=== PATIENT | female | born 1975 | race Two or more races ===

== ENCOUNTER 2018-12-14 19:48 | Emergency (ER) | payer OTHER ==
[2018-12-14] MEDS ORDERED: DIPH/PERTUSS(ACELL)/TETANUS VAC/PF 0.5 ML SYR (>=10YO) IM ONE (20:34)
--- NOTE | 2018-12-14 20:36 | ER Document Report ---
ED Medical Screen (RME) - General Chief Complaint: Puncture Wound Stated Complaint: LACERATION TO LEFT HAND Time Seen by Provider: 12/14/18 20:33 Primary Care Provider: GRACE IZQUIERDO FNP-C [Primary Care Provider] - Follow up as needed Mode of Arrival: Ambulatory Information source: Patient Notes: 43-year-old female presented to ED for a puncture wound to her left palm. She was trying to pry hamburgers apart with a knife when the knife slipped cutting her hand. She states her last tetanus was about 14 years ago so she will be getting that today. Bleeding is under control at this time. Patient is alert oriented respirations regular and unlabored speaking in full sentences. I have greeted and performed a rapid initial assessment of this patient. A comprehensive ED assessment and evaluation of the patient, analysis of test results and completion of medical decision making process will be conducted by an additional ED providers. TRAVEL OUTSIDE OF THE [place] IN LAST 30 DAYS: No - Related Data Allergies/Adverse Reactions: No Known Allergies Allergy (Unverified 03/11/11 00:56) Past Medical History - Past Medical History Cardiac Medical History: Reports: Hx Hypercholesterolemia Past Surgical History: Reports: Hx Tubal Ligation - Immunizations Hx Diphtheria, Pertussis, Tetanus Vaccination: - unk Physical Exam - Vital signs Vitals: Temp Pulse Resp BP Pulse Ox 98.0 F 58 L 18 130/84 H 98 12/14/18 19:52 12/14/18 19:52 12/14/18 19:52 12/14/18 19:52 12/14/18 19:52 Course - Vital Signs Vital signs: Temp Pulse Resp BP Pulse Ox 98.0 F 58 L 18 130/84 H 98 12/14/18 19:52 12/14/18 19:52 12/14/18 19:52 12/14/18 19:52 12/14/18 19:52 Doctor's Discharge - Discharge Referrals: GRACE IZQUIERDO FNP-C [Primary Care Provider] - Follow up as needed
--- NOTE | 2018-12-14 22:23 | ER Document Report ---
ED General - General Chief Complaint: Puncture Wound Stated Complaint: LACERATION TO LEFT HAND Time Seen by Provider: 12/14/18 20:33 Primary Care Provider: GRACE IZQUIERDO FNP-C [Primary Care Provider] - Follow up as needed Mode of Arrival: Ambulatory TRAVEL OUTSIDE OF THE [place] IN LAST 30 DAYS: No - HPI Notes: 43-year-old female presents with left hand laceration. [id number] female states just prior to come to the ED she was trying to pry apart to frozen hamburger patties with a steak knife when it slipped and punctured her left hyperthenar eminence. Tetanus is out of date. Sudden onset sharp pain, nonradiating. Throbbing. No other modifying factors, no other associated symptoms, no other provocative or palliative factors. No numbness or tingling. Basic range of motion intact according to patient. - Related Data Allergies/Adverse Reactions: No Known Allergies Allergy (Unverified 03/11/11 00:56) Past Medical History - General Information source: Patient - Social History Smoking Status: Unknown if Ever Smoked Family History: Reviewed & Not Pertinent Patient has suicidal ideation: No Patient has homicidal ideation: No - Past Medical History Cardiac Medical History: Reports: Hx Hypercholesterolemia Past Surgical History: Reports: Hx Tubal Ligation - Immunizations Hx Diphtheria, Pertussis, Tetanus Vaccination: - unk Review of Systems - Review of Systems Notes: Review of systems as in history of present illness, otherwise no significant headache, chest pain, abdominal pain. Physical Exam - Vital signs Vitals: Temp Pulse Resp BP Pulse Ox 98.0 F 58 L 18 130/84 H 98 12/14/18 19:52 12/14/18 19:52 12/14/18 19:52 12/14/18 19:52 12/14/18 19:52 - Notes Notes: General: Well devloped, no acute distress. HEENT: Normocephalic, atraumatic. Pupils equal round reactive to light. Mucosa moist. No JVD. Chest: No trauma, normal excursion. Respiratory: Good air exchange, normal excursion. Cardiac: Regular rhythm Abdomen: Soft, benign. Nondistended. Back: No asymmetry or gross abnormality. Motor: Grossly normal power and tone. Neurologic: Alert, nonfocal. Vascular: Well perfused Skin: No petechiae or purpura Extremities: Approximately 1 cm or less area of non-gaping laceration in the left proximal hyperthenar eminence. Bleeding controlled. Distal neurovascular function intact. The fourth and fifth digits are isolated and flexion is intact at all hand joints, dynamic range of motion shows evidence of tendon injury Course - Re-evaluation Re-evalutation: 12/14/18 22:26 Well appearing female isolated injury. Patient was evaluated by the [facility] provider prior to my evaluation. Studies / interventions have been ordered by this provider and may still be pending. Do not believe this mandates closure, I offered closure versus secondary intention healing and she is elected for the latter. Wound be cleansed and dressed, instructions given with regard to wound care and signs symptoms of infection. - Vital Signs Vital signs: Temp Pulse Resp BP Pulse Ox 98.0 F 58 L 18 130/84 H 98 12/14/18 19:52 12/14/18 19:52 12/14/18 19:52 12/14/18 19:52 12/14/18 19:52 Discharge - Discharge Clinical Impression: Laceration Disposition: HOME, SELF-CARE Instructions: Antibiotic Ointment Protection ([facility]), Laceration Care ([facility]), Tetanus Immunization Given ([facility]) Referrals: GRACE IZQUIERDO FNP-C [Primary Care Provider] - Follow up as needed
[2018-12-14 22:44] VITALS: BP 128/75
== END 2018-12-14 22:44 | disposition home or self-care (01) ==
LOC: ER 19:48
DX: S61.412A Laceration without foreign body of left hand, initial encounter (principal); W26.0XXA Contact with knife, initial encounter; Y92.009 Unspecified place in unspecified non-institutional (private) residence as the place of occurrence of the external cause; Z23 Encounter for immunization; E78.00 Pure hypercholesterolemia, unspecified; Z98.51 Tubal ligation status
CPT/HCPCS: 90471; 90715; 99282

== ENCOUNTER 2020-02-14 19:33 | Emergency (ER) | payer OTHER ==
--- NOTE | 2020-02-14 20:00 | ER Document Report ---
ED Medical Screen (RME) - General Chief Complaint: Flu Symptoms Stated Complaint: HEADACHE/FEVER/CONGESTION/COUGH Time Seen by Provider: 02/14/20 19:55 Primary Care Provider: GRACE IZQUIERDO FNP-C [Primary Care Provider] - Follow up as needed Mode of Arrival: Ambulatory Information source: Patient Notes: Patient is a 44-year-old female comes emergency room with onset of fever cough congestion shortness of breath and temperature with chills with a headache. Patient states it all started today. Patient works at [employer]. She does state that she was tested for the coronavirus a month ago when she had come in contact with her pharmacy operations manager who was positive but she checked negative at that time. Patient denies any past medical history currently on no medications. She denies any history of smoking. And last menstrual period started today. Patient also states that it hurts to take a deep breath. She has no known sick contacts although she does work with the public at [employer]. Physical examination: Patient is a well-nourished well-developed 44-year-old female though in no apparent distress appears uncomfortable. Cardiac: She displays a tachycardic rate at 105 bpm. Lungs: Bilateral breath sounds breath sounds increased patient has some faint expiratory wheeze noted bilaterally. There is no rhonchi auscultated at this time. HEENT: Examination head and upper airway show some mild nasal mucosa erythema and edema with minimal rhinorrhea. Bilateral nasal congestion is noted posterior pharynx with some moderate erythema with no exudates. I have greeted and performed a rapid initial assessment of this patient. A comprehensive ED assessment and evaluation of the patient, analysis of test results and completion of the medical decision making process will be conducted by additional ED providers. Dictation of this chart was performed using voice recognition software; therefore, there may be some unintended grammatical errors. TRAVEL OUTSIDE OF THE [place] IN LAST 30 DAYS: No - Related Data Allergies/Adverse Reactions: No Known Allergies Allergy (Unverified 03/11/11 00:56) Past Medical History - Past Medical History Cardiac Medical History: Reports: Hx Hypercholesterolemia Past Surgical History: Reports: Hx Tubal Ligation - Immunizations Hx Diphtheria, Pertussis, Tetanus Vaccination: - unk Physical Exam - Vital signs Vitals: Temp Pulse Resp BP Pulse Ox 99.7 F 105 H 15 154/94 H 98 02/14/20 19:42 02/14/20 19:42 02/14/20 19:42 02/14/20 19:42 02/14/20 19:42 Course - Vital Signs Vital signs: Temp Pulse Resp BP Pulse Ox 99.7 F 105 H 15 154/94 H 98 02/14/20 19:42 02/14/20 19:42 02/14/20 19:42 02/14/20 19:42 02/14/20 19:42 Doctor's Discharge - Discharge Referrals: GRACE IZQUIERDO, MUSIC ENGRAVER-C [Primary Care Provider] - Follow up as needed
--- NOTE | 2020-02-14 21:06 | RADIOLOGY REPORT (SQ) ---
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 Comparison: Chest radiograph performed 03/11/2011. Findings: The cardiomediastinal silhouette is enlarged. No pneumothorax is seen. There are airspace opacities seen at the right lung base. There is elevation of the right hemidiaphragm. No discrete pleural effusion is apparent. Impression: There are airspace opacities at the right lung base which may reflect atelectasis.
[2020-02-14 21:47] LABS: ABSOLUTE BASOPHILS # (AUTO) 0.1 10^3/uL (0.0-0.2); ABSOLUTE LYMPHOCYTES (AUTO) 0.6 10^3/uL (0.5-4.7); ABSOLUTE NEUT (AUTO) 4.6 10^3/uL (1.7-8.2); BASOPHILS % (AUTO) 0.9 % (0-2); EOSINOPHILS % (AUTO) 0.8 % (0-6); HEMATOCRIT 41.1 % (36.0-47.0); HEMOGLOBIN 14.2 g/dL (12.0-15.5); LYMPHOCYTES % (AUTO) 10.2 % (13-45); MEAN CORPUSCULAR HEMOGLOBIN 30.1 pg (27.0-33.4); MEAN CORPUSCULAR HGB CONC 34.6 g/dL (32.0-36.0); MEAN CORPUSCULAR VOLUME 87 fl (80-97); MONOCYTES % (AUTO) 15.4 % (3-13); PLATELET COUNT 301 10^3/uL (150-450); RED BLOOD COUNT 4.72 10^6/uL (3.72-5.28); RED CELL DISTRIBUTION WIDTH 13.6 % (11.5-14.0); SEGMENTED NEUTROPHILS % (AUTO) 72.7 % (42-78); TOTAL CELLS COUNTED % (AUTO) 100 %; WHITE BLOOD COUNT 6.3 10^3/uL (4.0-10.5)
[2020-02-14 22:13] LABS: ALBUMIN 4.6 g/dL (3.5-5.0); ALKALINE PHOSPHATASE 64 U/L (38-126); ANION GAP 8 (5-19); ASPARTATE AMINO TRANSFERASE 29 U/L (14-36); BILIRUBIN,DIRECT 0.3 mg/dL (0.0-0.4); BILIRUBIN,TOTAL 0.5 mg/dL (0.2-1.3); BLOOD UREA NITROGEN 15 mg/dL (7-20); CARBON DIOXIDE 27 mmol/L (22-30); CHLORIDE 101 mmol/L (98-107); GLUCOSE 102 mg/dL (75-110); POTASSIUM 4.4 mmol/L (3.6-5.0); TOTAL PROTEIN 8.5 g/dL (6.3-8.2)
[2020-02-14 22:40] LABS: A TYPE INFLUENZA AG NEGATIVE (NEGATIVE); B INFLUENZA AG NEGATIVE (NEGATIVE)
[2020-02-15] MEDS ORDERED: AZITHROMYCIN 250 MG TABLET PO ONE (00:13)
--- NOTE | 2020-02-15 00:15 | ER Document Report ---
ED Flu Like - General Chief Complaint: Flu Symptoms Stated Complaint: HEADACHE/FEVER/CONGESTION/COUGH Time Seen by Provider: 02/14/20 19:55 Primary Care Provider: GRACE IZQUIERDO FNP-C [Primary Care Provider] - Follow up in 1 week Mode of Arrival: Ambulatory Notes: Patient is a 44-year-old female who presents emergency department with a headache, cough, congestion, and a fever. Patient states that her fever was 101. States that she started to have her symptoms today. Patient works at [employer]. She does not know if she has been any contact with anybody tested positive for COVID-19. She does not take any medications. Not currently on control. Denies any long car rides or leg pain. Patient does not smoke. TRAVEL OUTSIDE OF THE [place] IN LAST 30 DAYS: No - Related Data Allergies/Adverse Reactions: No Known Allergies Allergy (Unverified 03/11/11 00:56) Past Medical History - General Information source: Patient - Social History Smoking Status: Never Smoker Family History: Reviewed & Not Pertinent - Past Medical History Cardiac Medical History: Reports: Hx Hypercholesterolemia Past Surgical History: Reports: Hx Tubal Ligation - Immunizations Hx Diphtheria, Pertussis, Tetanus Vaccination: - unk Review of Systems - Review of Systems Notes: REVIEW OF SYSTEMS: CONSTITUTIONAL : Denies recent illness. Denies recent unintentional weight loss. See HPI. EENT: Denies eye, ear, throat, or mouth pain, discharge, or symptoms. Denies nasal or sinus congestion. CARDIOVASCULAR: Denies chest pain. RESPIRATORY: See HPI. GASTROINTESTINAL: Denies nausea, vomiting, and diarrhea. Denies abdominal pain. Denies constipation. GENITOURINARY: Denies difficulty urinating, burning, blood in urine, urgency or frequency. MUSCULOSKELETAL: Denies neck and back pain. Denies joint pain or swelling. SKIN: Denies rash, itchiness, or lesions HEMATOLOGIC : Denies easy bruising or bleeding. LYMPHATIC: Denies swollen, painful, enlarged glands. NEUROLOGICAL: Denies no numbness or tingling denies weakness. Denies headache. Denies altered mental status. Denies alteration in speech. PSYCHIATRIC: Denies stress, anxiety, alteration in sleep patterns, or depression. All other systems reviewed and negative. Physical Exam - Vital signs Vitals: Temp Pulse Resp BP Pulse Ox 99.7 F 105 H 15 154/94 H 98 02/14/20 19:42 02/14/20 19:42 02/14/20 19:42 02/14/20 19:42 02/14/20 19:42 - Notes Notes: PHYSICAL EXAMINATION: GENERAL: Appears well, healthy, well-nourished, no acute distress. HEAD: Normocephalic, atraumatic. EYES: PERRL, conjunctiva normal, all extraocular movements intact, sclera nonicteric ENT: Moist mucous membranes. NECK: Supple, no noticeable swelling, redness, rash. Normal range of motion. LUNGS: Diminished to right lower lobe. CARDIOVASCULAR: S1-S2, regular rate, regular rhythm. Radial pulses 2+, normal. ABDOMEN: Normoactive bowel sounds. Soft, nontender, no guarding, no rebound tenderness, and no masses palpated. EXTREMITIES: Normal strength and range of motion, no pitting or edema. No cyanosis. NEUROLOGICAL: Moves all extremities upon command. Strength 5/5 in all extremities. PSYCH: Normal mood, normal affect. SKIN: Warm, dry. No rash, lesions, ulcerations noted. Normal skin turgor. Course - Re-evaluation Re-evalutation: 02/15/20 00:09 The patient was evaluated during the global COVID-19 pandemic and that diagnosis was suspected/considered upon their initial presentation. Their evaluation, treatment and testing was consistent with current guidelines for patients who present with complaints or symptoms that may be related to COVID-19.Hematology does not show a leukocytosis, but there is a shift in the neutrophils at 72.7%. Chemistries are unremarkable. LFTs are normal. Flu and strep tests are negative. Chest x-ray shows airspace opacities in the right base. Radiologist thinks that this may be atelectasis. Due to the patient having a fever and history provided, will place patient on azithromycin. I have a low suspicion for pulmonary emboli or any life-threatening etiology at this time. Follow-up precautions were given. Verbal discharge instructions were given to the patient. They verbalized understanding. They are stable for discharge. - Vital Signs Vital signs: Temp Pulse Resp BP Pulse Ox 99.8 F 95 16 113/75 98 02/14/20 23:43 02/14/20 23:43 02/14/20 23:43 02/14/20 23:43 02/14/20 23:43 - Laboratory Results Result Diagrams: 02/14/20 21:32 02/14/20 21:32 Laboratory Results Interpreted: 02/14/20 02/14/20 21:32 21:32 Lymph % (Auto) 10.2 L [place] % (Auto) 15.4 H Sodium 135.9 L Total Protein 8.5 H Critical Laboratory Results Reviewed: No Critical Results - Radiology Results Critical Radiology Results Reviewed: No Critical Results Discharge - Discharge Clinical Impression: Cough, Person under investigation for COVID-19 Fever Qualifiers: Fever type: unspecified Qualified Code(s): R50.9 - Fever, unspecified Condition: Stable Disposition: HOME, SELF-CARE Additional Instructions: You were seen today in the emergency department for a cough and a fever. You are being placed on antibiotics. Take your antibiotics as prescribed. Follow- up with your primary care provider if your Covid test is negative. Your strep and flu tests were negative. Use the incentive spirometer 10 times an hour while awake. As a person under investigation for COVID-19, the [place] Department of Health and Human Services (division on public health) advises you to adhere to the following guidance until your test results are reported to you. If your test result is positive, you will receive additional information from your provider and your local health department at that time. Remain at home until you are cleared by the health provider or public health authorities. Keep a log of visitors to your home, notify any visitors to your home of your isolation status. If you plan to move to a new address or leave the [facility], notify the local health department in your [facility]. Call your Doctor or seek care if you have an urgent medical need. Before seeking medical care, call him to get instructions from the provider before arriving at the medical office, clinic, or hospital. Notify them that you are being tested for the virus (COVID-19) so that arrangements can be made, as necessary, to prevent transmission to others in the healthcare setting. Next, notify the local health department in your county. Prescriptions: Azithromycin [Zithromax 250 mg Tablet] 250 mg PO DAILY #4 tablet Referrals: GRACE IZQUIERDO FNP-C [Primary Care Provider] - Follow up in 1 week
[2020-02-15 01:04] VITALS: BP 124/68
== END 2020-02-15 01:04 | disposition home or self-care (01) ==
LOC: ER 19:33
DX: U07.1 COVID-19 (principal); R51.9 Headache, unspecified; R05 Cough; R50.9 Fever, unspecified
CPT/HCPCS: 99284; 36415; 87070; 87880; 85025; 87635; 80053; 87804; 71045; C9803

== ENCOUNTER 2020-02-23 17:18 | Emergency (ER) | payer OTHER ==
[2020-02-23] MEDS ORDERED: IPRATROPIUM/ALBUTEROL 0.5-2.5 MG/3 ML AMPUL NEB ONE (18:45)
--- NOTE | 2020-02-23 18:45 | ER Document Report ---
ED Medical Screen (RME) - General Chief Complaint: Cough Stated Complaint: COUGH Time Seen by Provider: 02/23/20 18:38 Primary Care Provider: GRACE IZQUIERDO FNP-C [Primary Care Provider] - Follow up as needed TRAVEL OUTSIDE OF THE [place] IN LAST 30 DAYS: No - HPI Notes: 02/23/20 18:44 44-year-old female presents to the emergency room today for a productive cough that is coming progressively worse since she was diagnosed with Covid on 02/14/2020. She reports she was given a Z-Nikolas and has been self quarantining at home since that time. Reports that she is feeling a little short of breath, she does have some posterior chest pain when she does cough, her cough is 3 out of 5 with pain. Patient states she finished the Z-Nikolas without any issues. No history of asthma, she is a former smoker, quit over 10 years ago. Reports she becomes very short of breath with simple activities, has mostly been sitting in her bed at home. Denies any fevers or chills, nausea, vomiting, diarrhea. I have greeted and performed a rapid initial assessment of this patient. A comprehensive ED assessment and evaluation of the patient, analysis of test results and completion of the medical decision making process will be conducted by additional ED providers. PHYSICAL EXAMINATION: GENERAL: Well-appearing, well-nourished and in no acute distress. CV: s1, s2 regular LUNGS: Diminished breath sounds throughout Musculoskeletal: Normal range of motion NEUROLOGICAL: Normal speech, normal gait. SKIN: Warm, Dry, normal turgor, no rashes or lesions noted. The patient was evaluated during a global COVID-19 pandemic and that diagnosis was suspected/considered upon their initial presentation. Their evaluation, treatment and testing was consistent with current guidelines for patients who present with complaints or symptoms and may be related to COVID-19. - Related Data Allergies/Adverse Reactions: No Known Allergies Allergy (Unverified 03/11/11 00:56) Past Medical History - Past Medical History Cardiac Medical History: Reports: Hx Hypercholesterolemia Past Surgical History: Reports: Hx Tubal Ligation - Immunizations Hx Diphtheria, Pertussis, Tetanus Vaccination: - unk Physical Exam - Vital signs Vitals: Temp Pulse Resp BP Pulse Ox 98.3 F 80 16 120/83 97 02/23/20 17:34 02/23/20 17:34 02/23/20 17:34 02/23/20 17:34 02/23/20 17:34 Course - Vital Signs Vital signs: Temp Pulse Resp BP Pulse Ox 98.3 F 80 16 120/83 97 02/23/20 17:34 02/23/20 17:34 02/23/20 17:34 02/23/20 17:34 02/23/20 17:34 Doctor's Discharge - Discharge Referrals: GRACE IZQUIERDO, HAZARDOUS MATERIALS TANKER DRIVER-C [Primary Care Provider] - Follow up as needed
[2020-02-23 19:12] LABS: ABSOLUTE EOSINOPHILS # (AUTO) 0.1 10^3/uL (0.0-0.6); ABSOLUTE LYMPHOCYTES (AUTO) 2.4 10^3/uL (0.5-4.7); ABSOLUTE MONOCYTES (AUTO) 0.6 10^3/uL (0.1-1.4); ABSOLUTE NEUT (AUTO) 2.7 10^3/uL (1.7-8.2); BASOPHILS % (AUTO) 0.4 % (0-2); EOSINOPHILS % (AUTO) 1.1 % (0-6); HEMATOCRIT 39.1 % (36.0-47.0); HEMOGLOBIN 13.6 g/dL (12.0-15.5); LYMPHOCYTES % (AUTO) 41.2 % (13-45); MEAN CORPUSCULAR HEMOGLOBIN 29.8 pg (27.0-33.4); MEAN CORPUSCULAR HGB CONC 34.7 g/dL (32.0-36.0); MEAN CORPUSCULAR VOLUME 86 fl (80-97); MONOCYTES % (AUTO) 10.9 % (3-13); PLATELET COUNT 321 10^3/uL (150-450); RED BLOOD COUNT 4.55 10^6/uL (3.72-5.28); RED CELL DISTRIBUTION WIDTH 13.4 % (11.5-14.0); SEGMENTED NEUTROPHILS % (AUTO) 46.4 % (42-78); TOTAL CELLS COUNTED % (AUTO) 100 %; WHITE BLOOD COUNT 5.9 10^3/uL (4.0-10.5)
[2020-02-23 19:35] LABS: ALBUMIN 4.1 g/dL (3.5-5.0); ALKALINE PHOSPHATASE 82 U/L (38-126); ANION GAP 6 (5-19); ASPARTATE AMINO TRANSFERASE 40 U/L (14-36); BILIRUBIN,DIRECT 0.1 mg/dL (0.0-0.4); BILIRUBIN,TOTAL 0.4 mg/dL (0.2-1.3); BLOOD UREA NITROGEN 10 mg/dL (7-20); CALCIUM 9.4 mg/dL (8.4-10.2); CARBON DIOXIDE 29 mmol/L (22-30); CHLORIDE 102 mmol/L (98-107); GLUCOSE 94 mg/dL (75-110); POTASSIUM 4.4 mmol/L (3.6-5.0); TOTAL PROTEIN 7.8 g/dL (6.3-8.2)
--- NOTE | 2020-02-23 21:15 | RADIOLOGY REPORT (SQ) ---
EXAM DESCRIPTION: XR CHEST 1 VIEW COMPLETED DATE/TME: 02/23/2020 20:20 CLINICAL HISTORY: 44 years, Female, cough, covid + COMPARISON: None. NUMBER OF VIEWS: TECHNIQUE: LIMITATIONS: None. FINDINGS: No evidence of pulmonary infiltrate or pleural effusion. The heart and mediastinum are unremarkable. Pulmonary vascularity appears normal. IMPRESSION: No acute finding. copyright 2010 [employer]- All Rights Reserved
--- NOTE | 2020-02-23 23:37 | ER Document Report ---
ED Respiratory Problem - General Chief Complaint: Cough Stated Complaint: COUGH Time Seen by Provider: 02/23/20 18:38 Primary Care Provider: GRACE IZQUIERDO FNP-C [Primary Care Provider] - Follow up in 3-5 days TRAVEL OUTSIDE OF THE [place] IN LAST 30 DAYS: No - HPI Notes: Patient is a 44-year-old female with no significant past medical history who presents with shortness of breath and chest pain. Patient was diagnosed with Covid on February 13. She was discharged with a spirometer and a Z-Nikolas. Patient states that she is having chest tightness with deep breathing. She is still having a cough that is nonproductive. Patient states that she also has pain to her right lateral back with coughing. He denies any leg swelling. No loss of taste or smell. No nausea, vomiting, or diarrhea. Patient states her shortness of breath is worse with walking. - Related Data Allergies/Adverse Reactions: No Known Allergies Allergy (Unverified 03/11/11 00:56) Home Medications: denies Past Medical History - General Information source: Patient - Social History Smoking Status: Former Smoker Chew tobacco use (# tins/day): No Frequency of alcohol use: None Drug Abuse: None Family History: Reviewed & Not Pertinent Patient has homicidal ideation: No - Past Medical History Cardiac Medical History: Reports: Hx Hypercholesterolemia Past Surgical History: Reports: Hx Tubal Ligation - Immunizations Hx Diphtheria, Pertussis, Tetanus Vaccination: - unk Review of Systems - Review of Systems Notes: CONSTITUTIONAL: No fever, fatigue or weight loss. SKIN: No rash. HENT: No congestion, ear pain, or sore throat. EYES: No recent vision problems or eye pain. CARDIOVASCULAR: No chest pain or edema. RESPIRATORY: Positive for cough, chest tightness, shortness of breath GASTROINTESTINAL: No abdominal pain, nausea, vomiting, bloody stools or diarrhea. GENITOURINARY: No dysuria. MUSCULOSKELETAL: No joint pain or swelling. NEUROLOGIC: No seizures. No headache, focal weakness or sensory changes. HEMATOLOGIC: No unusual bruising or bleeding. PSYCHIATRIC: No depression or anxiety. Physical Exam - Vital signs Vitals: Temp Pulse Resp BP Pulse Ox 98.3 F 80 16 120/83 97 02/23/20 17:34 02/23/20 17:34 02/23/20 17:34 02/23/20 17:34 02/23/20 17:34 - General General appearance: Appears well In distress: None Notes: VITAL SIGNS: Within normal limits. GENERAL: No acute distress, non-toxic appearance. HEAD: Normal with no signs of head trauma. EYES: Conjunctiva normal, no discharge. EARS: Hearing grossly intact. NOSE: Normal. NECK: Normal range of motion, no tenderness, supple, no lymphadenopathy, No adenopathy, no JVD. CHEST: Clear breath sounds bilaterally. No wheezes, rales, or rhonchi. Reproducible right back discomfort to palpation. CARDIAC: Regular rate and rhythm. S1 and S2, without murmurs, gallops, or rubs. VASCULAR: No Edema. ABDOMEN: Normal and soft with no tenderness, no masses or pulsatile masses. MUSCULOSKELETAL: Good range of motion of all major joints. NEUROLOGICAL: Alert and oriented x 3. No focal sensory or strength deficits. Speech normal. Follows commands appropriately. PSYCHIATRIC: Normal Affect, judgement and mood. SKIN: Normal appearance with no rashes or lesions. Course - Re-evaluation Re-evalutation: 02/24/20 05:06 Patient cardiac work-up was unremarkable. Her D-dimer was negative. I have low suspicion for PE. Likely, patient has costochondritis from coughing. I will discharge her with an inhaler. She was told to take ibuprofen and Tylenol. She states she feels much better after treatment in the ER. She was instructed to follow-up with her PCP. Patient was given strict return precautions. Her vitals are normal on reassessment, patient is very agreeable to this plan. - Vital Signs Vital signs: Temp Pulse Resp BP Pulse Ox 98.3 F 75 17 111/66 98 02/24/20 04:28 02/24/20 04:28 02/24/20 04:28 02/24/20 04:28 02/24/20 04:28 - Laboratory Results Result Diagrams: 02/23/20 18:48 02/23/20 18:48 Laboratory Results Interpreted: 02/23/20 18:48 AST 40 H ALT 42 H Critical Laboratory Results Reviewed: No Critical Results - Radiology Results Critical Radiology Results Reviewed: No Critical Results - EKG Interpretation by [place] EKG shows normal: Sinus rhythm Rate: Normal Rhythm: NSR When compared to previous EKG there are: Previous EKG unavailable Additional EKG results interpreted by me: 02/24/20 00:22 Sinus rhythm at a rate of 62. No acute ST changes. QTC 390. Previous EKG unavailable. Discharge - Discharge Clinical Impression: Cough, COVID-19 Dyspnea Qualifiers: Dyspnea type: unspecified Qualified Code(s): R06.00 - Dyspnea, unspecified Condition: Stable Disposition: HOME, SELF-CARE Instructions: COVID-19 Guidance for Persons Under Investigation Additional Instructions: Your work-up today is reassuring. I will prescribe you an inhaler. Please follow-up with the health department and your work for instructions on when you can return to work. Return to the ER for any worsening symptoms. Prescriptions: Albuterol Sulfate [Albuterol Sulfate Hfa] 2 puff IH Q6H PRN #1 [email or web address] PRN Reason: Referrals: GRACE IZQUIERDO, ESCROW ASSISTANT-C [Primary Care Provider] - Follow up in 3-5 days
[2020-02-24] MEDS ORDERED: IPRATROPIUM/ALBUTEROL 0.5-2.5 MG/3 ML AMPUL NEB ONE (00:55)
[2020-02-24] MEDS ORDERED: KETOROLAC TROMETHAMINE 60 MG/2 ML SDV IM ONE ×2 (01:24→04:30)
[2020-02-24 04:29] VITALS: BP 111/66
--- NOTE | 2020-02-24 10:11 | EKG REPORT ---
SEVERITY:- NORMAL ECG - SINUS RHYTHM : Confirmed by: Viet Madrdi MD 24-Feb-2020 10:10:24
== END 2020-02-24 04:37 | disposition home or self-care (01) ==
LOC: ER 17:18
DX: U07.1 COVID-19 (principal); R05 Cough; R06.02 Shortness of breath; R07.89 Other chest pain; M54.9 Dorsalgia, unspecified; Z87.891 Personal history of nicotine dependence
CPT/HCPCS: 93005; 94640; 99285; 96372; 36415; 84703; 85025; 80053; 84484; 85379; 71045; 93010; J1885